=== PATIENT | female | born 1960 | race Caucasian/White ===

== ENCOUNTER → 2017-04-25 | Outpatient (CLI) | payer BC | END | disposition home or self-care (01) | LOC: EKG 08:13 | DX: M71.38 Other bursal cyst, other site (principal); M48.06 Spinal stenosis, lumbar region; R00.1 Bradycardia, unspecified; I45.9 Conduction disorder, unspecified; R94.31 Abnormal electrocardiogram [ECG] [EKG] | CPT/HCPCS: 93005 ==